=== PATIENT | female | born 1985 | race Caucasian/White ===

== ENCOUNTER 2019-06-07 14:31 | Emergency (ER) | payer OTHER ==
[~2019-06-07] VITALS: Ht 152.4 cm; Wt 117.9 kg
[~2019-06-07 14:31] MED LIST: AMOX500 PO; AZIT250 PO; Amoxicillin500 MG PO; Ativan0.5 MG PO; BETA.05TC; BUTASPCAF PO; Bactrim Ds Tab1 EACH PO; CEPH500 PO; CETI10 PO; CLON.5; CYCL10 PO; DESO.25TC TOP; DIPH50 PO; FEXO180 PO; FLUO20; FLUO20 PO; HYDACE5; HYDACE5 PO; HYDGUAL120 PO; HYDR1TAB94 PO; IBUP400 PO; IBUP800 PO; KETO10 PO; MECL25 PO; NAPR500; NAPR500 PO; Norco 5-325 Ta1 EACH PO; ONDA4 PO; OXYACE7.5T PO; PENVK500 PO; PRED10 PO; PREDNISONE; PROM25 PO; PROP10; Peridex480 ML SS; Prilosec Otc20 MG PO; RXCYCL10 PO; RXHYDACE PO; RXOXYACE PO; SERT100; SERT50 PO; TAMS.4ER PO; TRAM50 PO; TRAZ100 PO; VENL150ER; ZOLP10 PO; ZOLP5; [UNRECOGNIZED DRUG - REMARK]
[2019-06-07] MEDS ORDERED: Clonazepam0.5 MG PO (14:44)
[2019-06-07] MEDS ORDERED: NAPR550 PO (15:36)
[2019-06-07] MEDS ORDERED: Robaxin-750750 MG PO (15:36)
== END 2019-06-07 15:41 | disposition home or self-care (01) ==
LOC: ER 14:31
DX: S39.012A Strain of muscle, fascia and tendon of lower back, initial encounter (principal); S70.02XA Contusion of left hip, initial encounter; S20.212A Contusion of left front wall of thorax, initial encounter; F32.9 Major depressive disorder, single episode, unspecified; I10 Essential (primary) hypertension; F41.9 Anxiety disorder, unspecified; Z79.899 Other long term (current) drug therapy; F17.200 Nicotine dependence, unspecified, uncomplicated; Z88.5 Allergy status to narcotic agent; W18.30XA Fall on same level, unspecified, initial encounter
CPT/HCPCS: 71100; 72100; 73502; 99283-25

== ENCOUNTER → 2019-08-28 | Outpatient (CLI) | payer OTHER ==
[~2019-08-28] MED LIST changes: +Clonazepam0.5 MG PO; +NAPR550 PO; +Robaxin-750750 MG PO
[2019-09-05 13:10] LABS: HPV 16 Negative (Negative); HPV 18 Negative (Negative); HPV OTHER HR TYPES Negative (Negative)
== END | disposition home or self-care (01) ==
LOC: LAB SHORT 18:11 → LAB 18:11
PROVIDERS: Nurse Practitioner Family
DX: Z01.419 Encounter for gynecological examination (general) (routine) without abnormal findings (principal)
CPT/HCPCS: 87624; G0145

== ENCOUNTER 2021-06-04 10:33 | Emergency (ER) | payer OTHER ==
[~2021-06-04] VITALS: Ht 152.4 cm; Wt 120.2 kg
[2021-06-04] MEDS ORDERED: IBUP800 PO (13:01)
[2021-06-04] MEDS ORDERED: ASPERFLEX1 EACH TOP (13:01)
== END 2021-06-04 13:13 | disposition home or self-care (01) ==
LOC: ER 10:33
DX: S80.02XA Contusion of left knee, initial encounter (principal); I10 Essential (primary) hypertension; Z88.5 Allergy status to narcotic agent; W01.0XXA Fall on same level from slipping, tripping and stumbling without subsequent striking against object, initial encounter
CPT/HCPCS: 73562-LT; 99283-25; A9270

== ENCOUNTER 2024-03-08 07:28 | Observation (INO) | payer OTHER ==
[2024-03-08] VITALS (18 sets, daily range): BP systolic 119–185; BP diastolic 67–104
[~2024-03-08] VITALS: Ht 152.4 cm; Wt 117.9 kg
[~2024-03-08 07:28] MED LIST changes: +ASPERFLEX1 EACH TOP
[2024-03-08] MEDS ORDERED: Ondansetron HCl 2 MG / ML 2ML Vial IV ONE (07:55)
[2024-03-08] MEDS ORDERED: Ketorolac Tromethamine 15mg Vial IV ONE (07:55)
[2024-03-08 08:13] LABS: BASOPHILS ABSOLUTE AUTO 0.06 K/mm3 (0.00-0.23); BASOPHILS PERCENT AUTO 1 % (0-2); EOSINOPHILS ABSOLUTE AUTO 0.41 K/mm3 (0.00-0.68); EOSINOPHILS PERCENT AUTO 3 % (0-6); Hematocrit 39.8 % (33.0-51.0); Hemoglobin 13.4 g/dL (11.5-16.0); IMMATURE GRAN ABSOLUTE AUTO 0.05 K/mm3 (0.00-0.10); IMMATURE GRAN PERCENT AUTO 0 % (0-1); LYMPHOCYTES PERCENT AUTO 19 % (21-46); MONOCYTES ABSOLUTE AUTO 0.82 K/mm3 (0.16-1.47); MONOCYTES PERCENT AUTO 7 % (4-13); Mean Corpuscular HGB 29.8 pg (26.0-34.0); Mean Corpuscular HGB Conc 33.7 g/dL (31.5-36.5); Mean Corpuscular Volume 89 fL (80-100); Mean Platelet Volume 8.5 fL (9.1-12.4); NEUTROPHILS ABSOLUTE AUTO 8.66 K/mm3 (1.96-9.15); NEUTROPHILS PERCENT AUTO 70 % (41-73); Platelet Count 282 K/mm3 (150-400); RDW Coefficient Variation 12.3 % (11.7-14.2); Red Blood Cell Count 4.49 M/mm3 (3.80-5.20)
[2024-03-08] MEDS ORDERED: OMEP20ER PO (08:20)
[2024-03-08 08:38] LABS: Albumin, Blood 3.1 g/dL (3.4-5.0); Albumin/Globulin Ratio 0.9 (0.8-1.8); Bilirubin, Total 0.3 mg/dL (0.1-1.0); Bun/Creatinine Ratio 18.3 (12.0-20.0); Calcium, Blood 8.3 mg/dL (8.5-10.1); Creatinine, Blood 0.71 mg/dL (0.40-1.00); Globulin, Blood 3.6 g/dL (2.2-4.0); Total Protein, Blood 6.7 g/dL (6.4-8.2)
[2024-03-08] MEDS ORDERED: Bupivacaine 0.5% HCl 5 MG/ML 30MLVIAL ONE (10:02)
[2024-03-08] MEDS ORDERED: Lactated Ringer's 1,000 ML IV SCH (10:50)
[2024-03-08] MEDS ORDERED: CeFAZolin Sodium 3,000 MG in NS 100 ML IV SCH (10:50)
[2024-03-08] MEDS ORDERED: Midazolam HCl 1MG / ML 2ML Vial ONE (11:59)
[2024-03-08] MEDS ORDERED: FentaNYL Citrate 50 MCG/ML 2 ML Injection ONE (11:59)
[2024-03-08] MEDS ORDERED: propofoL 20 ML IV ONE (11:59)
[2024-03-08] MEDS ORDERED: Ondansetron HCl 2 MG / ML 2ML Vial ONE (12:14)
[2024-03-08] MEDS ORDERED: Rocuronium Bromide 10 MG/ML 5ML Injection IV ONE (12:14)
[2024-03-08] MEDS ORDERED: Esmolol HCL 10 MG/ML 10ML VIAL ONE (12:14)
[2024-03-08] MEDS ORDERED: Dexamethasone Sod Phos 10 MG/ML 1ML VIAL ONE (12:14)
[2024-03-08] MEDS ORDERED: HYDROmorphone HCl/Pf 1MG SYR ONE (12:22)
[2024-03-08] MEDS ORDERED: Sugammadex Sodium 200 MG/2ML SDV (100 MG/ML) ONE (12:25)
[2024-03-08] MEDS ORDERED: Ketorolac Tromethamine 30mg Vial ONE (12:27)
[2024-03-08] MEDS ORDERED: Metoclopramide HCl 5MG / ML 2ML Vial ONE (13:24)
--- NOTE | 2024-03-08 14:23 | NUR ---
PT ARRIVED TO RM 211 FROM PACU AT APPROXIMATELY 1410. PT DROWSY BUT AWAKE AND ORIENTED. SHE REPORTS MILD NAUSEA AND MINIMAL PAIN. BP ELEVATED, PT STATES SHE US UNSURE OF HER BASELINE BP AND THAT SHE HAS NOT BEEN TO A DOCTOR IN YEARS. PT PROVIDED WITH CALL LIGHT AND EDUCATED TO USE. FAMILY AT BEDSIDE FOR SUPPORT.
[2024-03-08] MEDS ORDERED: Acetaminophen 325 MG TABLET PO PRN ×2 (14:55→15:10)
[2024-03-08] MEDS ORDERED: OxyCODONE HCL 5 MG TAB PO PRN ×2 (15:00→15:10)
[2024-03-08] MEDS ORDERED: NS 1,000 ML IV SCH ×2 (15:00→15:05)
[2024-03-08] MEDS ORDERED: Ondansetron HCl 2 MG / ML 2ML Vial IV PRN ×2 (15:00→15:10)
[2024-03-08] MEDS ORDERED: Zolpidem Tartrate 5 MG Tab PO PRN ×2 (15:00→15:05)
[2024-03-08] MEDS ORDERED: HYDROmorphone HCl/Pf 1MG SYR IV PRN ×2 (15:00→15:05)
[2024-03-08] MEDS ORDERED: Ketorolac Tromethamine 30mg Vial IV PRN (15:05)
--- NOTE | 2024-03-08 15:05 | NUR ---
HTN DR. JUARES NOTIFIED OF HTN DESPITE MINIMAL PAIN AND HOSP CONSULT ORDERED AND CALLED TO DR. GODWIN. CARE MANAGEMENT RN JUAN DANIEL MADDOX NOTIFIED THAT PT WILL NEED ASSISTANCE TO FIND A PCP.
[2024-03-08] MEDS ORDERED: Losartan Potassium 50 MG Tab PO SCH (16:00)
--- NOTE | 2024-03-08 16:29 | NUR ---
BLOOD PRESSURE HAS IMPROVED. DR. GODWIN NOTIFIED OF ELEVATED TSH. FREE T4 ORDERED PER DR. GODWIN, WAITING FOR RESULTS.
[2024-03-08] MEDS ORDERED: ONDA4ODT PO (17:33)
--- NOTE | 2024-03-08 18:30 | NUR ---
DISCHARGE PT PROVIDED WITH WRITTEN AND VERBAL DISCHARGE INTRUCTIONS, SHE REPORTED UNDERSTANDING. PT PROVIDED WITH A LIST OF PCP DOCTORS IN THE AREA AND ENCOURAGED TO F/U WITH A PCP WITHIN 1 WEEK REGARDING ELEVATED BLOOD PRESSURE. BLOOD PRESSURE IMPROVED PRIOR TO DISCHARGE. PAIN MANAGED. PT ABLE TO VOID, AMBULATE AND TOLERTE PO PRIOR TO DISCHARGE. PT ASSISTED OUT IN W/C AT APPROXIMATELY 1813. PRESCRIPTION PROVIDED FOR PAIN MEDICATION. [facility] CALLED TO [facility] PER PT REQUEST.
[2024-03-08] MEDS ORDERED: Famotidine 20 MG Tab PO SCH ×2 (21:00)
[2024-03-09] MEDS ORDERED: Enoxaparin 40 MG/0.4 ML SYR SC SCH ×2 (09:00)
== END 2024-03-08 18:13 | disposition home or self-care (01) ==
LOC: ER 07:28 → SURS 07:29 → ER 14:30 → SURS 14:40
PROVIDERS: Emergency Medicine; ADMIT Surgery
PROC: 0FT44ZZ Resection of Gallbladder, Percutaneous Endoscopic Approach (ICD-10-PCS; principal; 2024-03-08 08:00)
DX: K80.10 Calculus of gallbladder with chronic cholecystitis without obstruction (principal); I10 Essential (primary) hypertension; K21.9 Gastro-esophageal reflux disease without esophagitis; F32.A Depression, unspecified; Z87.891 Personal history of nicotine dependence; Z88.5 Allergy status to narcotic agent; Z79.899 Other long term (current) drug therapy
CPT/HCPCS: 76705; 80053; 83690; 84439; 84443; 84484; 84703; 85025; 88304; 93005; 93010; 94762; 96374; 96375; 96376; 99285-25; A9270; G0378; J0690; J1100; J1170; J1885; J2250; J2405; J2704; J2765; J3010; J7120